=== PATIENT | male | born 1965 | race Caucasian/White ===

== ENCOUNTER 2017-03-14 09:48 | Emergency (ER) | payer OTHER ==
[2017-03-14] MEDS ORDERED: NORMAL SALINE 1000 ML 1,000 ML IV PRN (10:41)
[2017-03-14] MEDS ORDERED: KETOROLAC TROMETHAMINE INJ/PF 30 MG/1 ML SDV IV ONE (10:41)
--- NOTE | 2017-03-14 10:43 | ER Document Report ---
ED Medical Screen (RME) - General Chief Complaint: Shortness Of Breath Stated Complaint: SHORTNESS OF BREATH,FATIGUE Time Seen by Provider: 03/14/17 10:40 Mode of Arrival: Ambulatory Information source: Patient TRAVEL OUTSIDE OF THE [place] IN LAST 30 DAYS: No - HPI Patient complains to provider of: Dyspnea on exertion, low back pain, diaphoresis Notes: 03/14/17 10:42 Patient is a 51-year-old male with a history of high triglycerides and hypertension, who presents to the emergency room complaining of dyspnea on exertion, fatigue, diaphoresis, low back pain, headaches, ringing in his ears, symptoms have been going on for the past 2-3 days, he was actually seen by his primary care provider on Tuesday with these complaints, had an outpatient EKG and blood work performed, he was told the EKG was okay but he is awaiting results of his lab work, patient is a smoker, has no known cardiac disease, does have a history of chronic low back pain that has been worsening - Related Data Allergies/Adverse Reactions: No Known Allergies Allergy (Verified 03/14/17 09:52) Past Medical History Renal/ Medical History: Denies: Hx Peritoneal Dialysis Physical Exam - Vital signs Vitals: Temp Pulse Resp BP Pulse Ox 98.2 F 92 16 127/79 H 96 03/14/17 09:53 03/14/17 09:53 03/14/17 09:53 03/14/17 09:53 03/14/17 09:53 Course - Vital Signs Vital signs: Temp Pulse Resp BP Pulse Ox 98.2 F 92 16 127/79 H 96 03/14/17 09:53 03/14/17 09:53 03/14/17 09:53 03/14/17 09:53 03/14/17 09:53
[2017-03-14 11:06] LABS: APPEARANCE,URINE CLEAR; BILIRUBIN,URINE NEGATIVE (NEGATIVE); GLUCOSE, URINE NEGATIVE (NEGATIVE); KETONES,URINE NEGATIVE (NEGATIVE); LEUKOCYTE ESTERASE,URINE NEGATIVE (NEGATIVE); NITRITE,URINE NEGATIVE (NEGATIVE); PROTEIN,URINE NEGATIVE (NEGATIVE); URINE SPECIFIC GRAVITY 1.001; UROBILINOGEN,URINE NEGATIVE mg/dL (<2.0)
--- NOTE | 2017-03-14 11:12 | RADIOLOGY REPORT (SQ) ---
EXAM DESCRIPTION: CHEST PA/LAT COMPLETED DATE/TIME: 03/14/2017 11:04 am REASON FOR STUDY: NYE COMPARISON: None. EXAM PARAMETERS: NUMBER OF VIEWS: two views TECHNIQUE: Digital Frontal and Lateral radiographic views of the chest acquired. RADIATION DOSE: NA LIMITATIONS: none FINDINGS: LUNGS AND PLEURA: No opacities, masses or pneumothorax. No pleural effusion. MEDIASTINUM AND HILAR STRUCTURES: No masses or contour abnormalities. HEART AND VASCULAR STRUCTURES: Heart normal size. No evidence for failure. BONES: No acute findings. HARDWARE: None in the chest. OTHER: No other significant finding. IMPRESSION: NO SIGNIFICANT RADIOGRAPHIC FINDING IN THE CHEST. TECHNICAL DOCUMENTATION: JOB ID: [id number] [employer]- All Rights Reserved
[2017-03-14 11:16] LABS: ABSOLUTE BASOPHILS # (AUTO) 0.1 10^3/uL (0.0-0.2); ABSOLUTE EOSINOPHILS # (AUTO) 0.2 10^3/uL (0.0-0.6); ABSOLUTE LYMPHOCYTES (AUTO) 2.1 10^3/uL (0.5-4.7); ABSOLUTE MONOCYTES (AUTO) 0.6 10^3/uL (0.1-1.4); ABSOLUTE NEUT (AUTO) 3.8 10^3/uL (1.7-8.2); BASOPHILS % (AUTO) 0.8 % (0-2); EOSINOPHILS % (AUTO) 2.3 % (0-6); HEMATOCRIT 44.6 % (37.9-51.0); HEMOGLOBIN 14.7 g/dL (13.5-17.0); HGB HCT DIFFERENCE -0.5; LYMPHOCYTES % (AUTO) 30.9 % (13-45); MEAN CORPUSCULAR HEMOGLOBIN 32.6 pg (27.0-33.4); MEAN CORPUSCULAR HGB CONC 32.9 g/dL (32.0-36.0); MEAN CORPUSCULAR VOLUME 99 fl (80-97); MONOCYTES % (AUTO) 9.7 % (3-13); RED CELL DISTRIBUTION WIDTH 13.2 % (11.5-14.0); SEGMENTED NEUTROPHILS % (AUTO) 56.3 % (42-78); WHITE BLOOD COUNT 6.7 10^3/uL (4.0-10.5)
[2017-03-14 11:23] LABS: ALANINE AMINOTRANSFERASE 69 U/L (21-72); ALBUMIN 4.2 g/dL (3.5-5.0); ALKALINE PHOSPHATASE 74 U/L (38-126); ANION GAP 10 (5-19); ASPARTATE AMINO TRANSFERASE 40 U/L (17-59); BILIRUBIN,DIRECT 0.3 mg/dL (0.0-0.4); BILIRUBIN,TOTAL 0.5 mg/dL (0.2-1.3); BLOOD UREA NITROGEN 10 mg/dL (7-20); CALCIUM 9.8 mg/dL (8.4-10.2); CARBON DIOXIDE 26 mmol/L (22-30); CHLORIDE 109 mmol/L (98-107); CREATINE KINASE 116 U/L (55-170); CREATININE RESULT 0.89 mg/dL (0.52-1.25); GLUCOSE 81 mg/dL (75-110); POTASSIUM 4.5 mmol/L (3.6-5.0); SODIUM 145.3 mmol/L (137-145); TOTAL PROTEIN 7.3 g/dL (6.3-8.2)
[2017-03-14 11:40] LABS: CREATINE KINASE MB 1.39 ng/mL (<4.55)
[2017-03-14 11:42] LABS: TROPONIN I < 0.012 ng/mL
--- NOTE | 2017-03-14 12:21 | ER Document Report ---
ED General - General Mode of Arrival: Ambulatory Information source: Patient TRAVEL OUTSIDE OF THE [place] IN LAST 30 DAYS: No - HPI Patient complains to provider of: Lower back pain and shortness of breath Onset: Other - see notes above Associated symptoms: Other - see notes above <DOMINGA PELAOY - Last Filed: 03/14/17 12:02> <MABEL CHAPARRO - Last Filed: 03/14/17 16:09> - General Chief Complaint: Shortness Of Breath Stated Complaint: SHORTNESS OF BREATH,FATIGUE Time Seen by Provider: 03/14/17 10:40 Notes: 51 year old male with history with history of hyperlipidemia, hypertension, and GERD presents to the ED complaining of fatigue, worsening shortness of breath, lower back pain, and ringing to the ears that started this morning while at work. Patient reports that he has chronic lower back and right leg pain, but the pain was unbearable this morning. Patient also states that he has been short of breath for weeks to the point that climbing a flight of stairs feels like 'I've run 20 miles.' 2 days ago the patient woke up to severe lower back pain ('the worse in my life'), hot flash, cold sweats, and left leg cramping at 0400 and called EMS. EMS arrived, but the patient refused transport because his symptoms were resolving and he had an appointment with his PCP that same morning. Patient has chronic lower back and right leg spasms and was concerned when his left leg began to hurt. Patient has not received an MRI, stating that, Dr. Nielsen of [facility], wants him to finish 6 weeks of physical therapy before scheduling one. Patient is currently on Tricor, Lisinopril, Nexium, and as needed Zanaflex. (DOMINGA PELAYO) - Related Data Allergies/Adverse Reactions: No Known Allergies Allergy (Verified 03/14/17 09:52) Past Medical History - General Information source: Patient - Social History Smoking Status: Current Every Day Smoker Family History: CAD - Maternal Patient has suicidal ideation: No Patient has homicidal ideation: No - Past Medical History Cardiac Medical History: Reports: Hx Hypercholesterolemia, Hx Hypertension Renal/ Medical History: Denies: Hx Peritoneal Dialysis GI Medical History: Reports: Hx Gastroesophageal Reflux Disease Past Surgical History: Reports: Hx Orthopedic Surgery - left shoulder AC joint resection <DOMINGA PELAYO - Last Filed: 03/14/17 12:02> Review of Systems - Review of Systems Constitutional: See HPI, Chills, Diaphoresis, Malaise EENT: No symptoms reported Cardiovascular: No symptoms reported Respiratory: See HPI, Short of breath Gastrointestinal: No symptoms reported Genitourinary: No symptoms reported Male Genitourinary: No symptoms reported Musculoskeletal: See HPI, Back pain - lower back, Other - left thigh muscle spasms Skin: No symptoms reported Hematologic/Lymphatic: No symptoms reported Neurological/Psychological: No symptoms reported -: Yes All other systems reviewed and negative <ADRIEN PELAYOUR - Last Filed: 03/14/17 12:02> Physical Exam - General General appearance: Alert In distress: None - HEENT Head: Normocephalic, Atraumatic Eyes: Normal Extraocular movements intact: Yes Pupils: PERRL Neck: Normal. No: Carotid bruit - Respiratory Respiratory status: No respiratory distress Breath sounds: Normal - Cardiovascular Rhythm: Regular Heart sounds: Normal auscultation - Abdominal Inspection: Normal Distension: No distension Tenderness: Nontender - Back Back: Tender - Mild tenderness to palpation of the paralumbar musculature. Patient is able to sit up without difficulty. - Extremities General upper extremity: Normal inspection, Normal ROM General lower extremity: Normal inspection, Normal ROM - Neurological Neuro grossly intact: Yes - Psychological Associated symptoms: Normal affect, Normal mood - Skin Skin Temperature: Warm Skin Moisture: Dry Skin Color: Normal <DOMINGA PELAYO - Last Filed: 03/14/17 12:02> Course - Laboratory Result Diagrams: 03/14/17 10:50 03/14/17 10:50 <PELAYODOMINGA - Last Filed: 03/14/17 12:02> - Laboratory Result Diagrams: 03/14/17 10:50 03/14/17 10:50 - Diagnostic Test Radiology reviewed: Image reviewed, Reports reviewed - Chest x-ray does not show any acute process - EKG Interpretation by Me EKG shows normal: Sinus rhythm, [place], Intervals, QRS Complexes, ST-T Waves Rate: Normal - 83 Rhythm: NSR <MABEL CHAPARRO - Last Filed: 03/14/17 16:09> - Re-evaluation Re-evalutation: 03/14/17 16:04 I went to inform the patient that MRI would be ready for him in about 1 hour, and found the room if the being cleaned. When I returned to the desk, MRI was on the phone saying they could take him now, but he has eloped. Previously the nurse had reported that he was going to leave that he was not get an MRI that he demanded. I was waiting until I had his repeat cardiac enzymes to be sure all his systemic complaints did not have a cardiac origin prior to sending him for an elective study. About the time the repeat troponins came back the MRI had been ordered. Later the nurse told me that he informed her he was going to leave because he was tired of waiting for his MRI. Again, I went to the room to speak with patient and he had eloped. Patient's EKG was completely normal, chest x-ray was unremarkable. Lab work with 2 sets of cardiac enzymes was unremarkable. There is no clear explanation for the symptoms he experienced at work today of shortness of breath, fatigue, sweats, headache and ringing in the ears. (MABEL CHAPARRO) - Vital Signs Vital signs: Temp Pulse Resp BP Pulse Ox 98 F 73 14 135/84 H 100 03/14/17 14:00 03/14/17 15:00 03/14/17 15:01 03/14/17 15:01 03/14/17 15:01 - Laboratory Laboratory results interpreted by me: 03/14/17 03/14/17 10:50 10:50 MCV 99 H Sodium 145.3 H Chloride 109 H Discharge <DOMINGA PELAYO - Last Filed: 03/14/17 12:02> <MABEL CHAPARRO - Last Filed: 03/14/17 16:09> - Discharge Clinical Impression: Short of breath, fatigue, sweats, headache Chronic low back pain with bilateral sciatica Qualifiers: Back pain laterality: bilateral Qualified Code(s): M54.42 - Lumbago with sciatica, left side; M54.41 - Lumbago with sciatica, right side; G89.29 - Other chronic pain Condition: Stable Disposition: ELOPED Scribe Attestation: 03/14/17 16:09 I personally performed the services described in the documentation, reviewed and edited the documentation which was dictated to the scribe in my presence, and it accurately records my words and actions. (MABEL CHAPARRO) Scribe Documentation - Scribe Written by Geovanny:: Geovanny Matthew, 03/14/2017 1226 acting as scribe for :: Toshia <DOMINGA PELAYO - Last Filed: 03/14/17 12:02>
[2017-03-14 13:54] LABS: TROPONIN I < 0.012 ng/mL
[2017-03-14 15:57] VITALS: BP 114/73
--- NOTE | 2017-03-14 17:55 | EKG REPORT ---
SEVERITY:- NORMAL ECG - SINUS RHYTHM : Confirmed by: Belgica Amaya MD 14-Mar-2017 17:55:16
== END 2017-03-14 16:11 | disposition left against medical advice (07) ==
LOC: EDBD 09:48 → ER 09:48
DX: M54.42 Lumbago with sciatica, left side (principal); M54.41 Lumbago with sciatica, right side; G89.29 Other chronic pain; R06.02 Shortness of breath; R53.83 Other fatigue; E78.5 Hyperlipidemia, unspecified; I10 Essential (primary) hypertension; M54.5 Low back pain; Z79.899 Other long term (current) drug therapy; F17.200 Nicotine dependence, unspecified, uncomplicated
CPT/HCPCS: 93005; 99281; 96361; 96374; 36415; 82553; 82550; 85025; 80053; 81001; 84484; 83880; 71020; 93010; J1885; J7030

== ENCOUNTER 2017-09-28 08:27 | Day surgery (SDC) | payer OTHER ==
[~2017-09-28 08:27] MED LIST: PROPOFOL INJ 200 MG/20 ML VIAL IV ONE
[2017-09-28 10:41] VITALS: BP 130/79
--- NOTE | 2017-09-28 11:38 | Operative Report ---
Operative Report DATE OF SURGERY: 09/28/17 Operative Report: The risks benefits and alternatives of the procedure explained to the patient in detail and informed consent is obtained.A GIF Olympus video scope was inserted into the patient's mouth and hypopharynx, the esophagus is identified intubated and insufflated, the scope was then advanced through the esophagus stomach and duodenum, retroflexion maneuver is done, the esophagus stomach and first and second portions of the duodenum examined PREOPERATIVE DIAGNOSIS: Epigastric pain POSTOPERATIVE DIAGNOSIS: Hiatal hernia. Gastritis. Esophagitis with some residual inflammation and erosions OPERATION: EGD with biopsy SURGEON: DAGO AVILA ANESTHESIA: LMAC TISSUE REMOVED OR ALTERED: As noted above. COMPLICATIONS: None. ESTIMATED BLOOD LOSS: None. INTRAOPERATIVE FINDINGS: As noted above. PROCEDURE: Patient tolerated procedure well. No immediate postprocedure complications are noted. Patient discharged in good condition. Discharge date 09/28/2017. Discharge diet: Regular. Discharge activity: Regular. 2-3 week follow-up to discuss findings. Patient is instructed to call the office or proceed to the emergency room should there be any further problems or questions. We will wait on pathology.
== END 2017-09-28 10:45 | disposition home or self-care (01) ==
LOC: END 08:27
PROVIDERS: ATTEND Internal Medicine Gastroenterology
PROC: 0DB58ZX Excision of Esophagus, Via Natural or Artificial Opening Endoscopic, Diagnostic (ICD-10-PCS; 2017-09-28)
PROC: 0DB68ZX Excision of Stomach, Via Natural or Artificial Opening Endoscopic, Diagnostic (ICD-10-PCS; principal; 2017-09-28 10:30)
DX: K44.9 Diaphragmatic hernia without obstruction or gangrene (principal); K29.50 Unspecified chronic gastritis without bleeding; K20.9 Esophagitis, unspecified
CPT/HCPCS: 43239; 88305 ×2; J2704; 731

== ENCOUNTER 2018-05-03 07:12 | Day surgery (SDC) | payer OTHER ==
[2018-05-03] MEDS ORDERED: PROMETHAZINE HCL INJ 25 MG/1 ML VIAL IV PRN ×2 (10:13)
[2018-05-03] MEDS ORDERED: MEPERIDINE HCL/PF INJ 25 MG/1 ML DISP.SYRIN IV PRN (10:13)
[2018-05-03] MEDS ORDERED: FENTANYL CITRATE INJ/PF 100 MCG/2 ML AMPUL IV PRN ×3 (10:13)
[2018-05-03] MEDS ORDERED: DIPHENHYDRAMINE HCL 50 MG/ML VIAL IV PRN (10:13)
[2018-05-03] MEDS ORDERED: PROPOFOL INJ 200 MG/20 ML VIAL IV ONE (10:27)
--- NOTE | 2018-05-03 12:34 | Operative Report ---
Operative Report DATE OF SURGERY: 05/03/18 Operative Report: The risks, benefits and alternatives of the procedure are explained to the patient in detail and informed consent is obtained. Patient is taken back to the operating room and placed in a left, lateral decubital position. Timeout was called. Propofol medications administered. A rectal examination is done which did not reveal any masses, tears or fissures. An Olympus videoscope was inserted into the patient's rectum. Scope was then carefully advanced all the way to the cecum. Cecum was identified by the usual anatomical landmarks including the ileocecal valve as well as appendiceal office. Patient has a very long redundant colon. Prep was good. Scope was then sequentially pulled back via the various segments of the colon including the ascending colon, hepatic flexure, transverse colon, splenic flexure, descending colon and finally into the rectosigmoid portions of the colon. Retroflexion maneuvers performed. PREOPERATIVE DIAGNOSIS: Abdominal distention POSTOPERATIVE DIAGNOSIS: Redundancy of the colon. Poor overall motility. 2 polyps one in the sigmoid is removed via snare polypectomy. The other in the rectum which is essentially ablated in situ since no tissue was recovered. Mild diverticulosis. Internal hemorrhoids OPERATION: Colonoscopy with biopsy SURGEON: DAGO AVILA ANESTHESIA: LMAC TISSUE REMOVED OR ALTERED: As noted above. COMPLICATIONS: None. ESTIMATED BLOOD LOSS: None. INTRAOPERATIVE FINDINGS: As noted above. PROCEDURE: Patient tolerated the procedure well. No immediate postprocedure complications are noted. Patient discharged in good condition. Discharge date 05/03/2018. Discharge diet: Regular. Discharge activity: Regular. 2-3 week follow-up to discuss findings. 3-5 year surveillance colonoscopy. We will wait on pathology. Patient is instructed call the office or proceed to the emergency room should there be any further problems or questions.
[2018-05-03 13:07] VITALS: BP 114/70
== END 2018-05-03 12:10 | disposition home or self-care (01) ==
LOC: OROUT 07:12
PROVIDERS: ATTEND Internal Medicine Gastroenterology
DX: K57.30 Diverticulosis of large intestine without perforation or abscess without bleeding (principal); K64.8 Other hemorrhoids; K63.5 Polyp of colon; D12.8 Benign neoplasm of rectum; E78.5 Hyperlipidemia, unspecified; K21.9 Gastro-esophageal reflux disease without esophagitis; E78.1 Pure hyperglyceridemia; F17.210 Nicotine dependence, cigarettes, uncomplicated; I10 Essential (primary) hypertension; I49.9 Cardiac arrhythmia, unspecified; M19.90 Unspecified osteoarthritis, unspecified site; Z79.899 Other long term (current) drug therapy
CPT/HCPCS: 45385; 36415; 84132; 88305 ×2; J2704; 811

== ENCOUNTER 2018-09-04 01:13 | Observation (INO) | payer OTHER ==
[2018-09-04] MEDS ORDERED: ASPIRIN 81 MG TABLET, CHEWABLE PO ONE (01:31)
--- NOTE | 2018-09-04 01:31 | ER Document Report ---
ED General - General Chief Complaint: Chest Pain Stated Complaint: CHEST PAIN Time Seen by Provider: 09/04/18 01:25 Notes: 52-year-old male with hypertension, hyperlipidemia, RA, gastritis, hiatal hernia who was a recent 2 pack/day smoker who quit 5 weeks ago presents with chest pain substernal and left arm and neck numbness that woke him from sleep at about midnight. Patient is also complaining of reflux but states that the chest pain and numbness is completely unlike his typical reflux symptoms. Described the pain as a pressure. He said the pain did not radiate but again it was a numbness. This is the first time this is happened. He denied diaphoresis but said his feet got sweaty, denied nausea, denied dyspnea, denied vomiting. TRAVEL OUTSIDE OF THE [place] IN LAST 30 DAYS: No - Related Data Allergies/Adverse Reactions: No Known Allergies Allergy (Verified 05/03/18 07:34) Past Medical History - General Information source: Patient, Parent - Social History Smoking Status: Former Smoker - 51-10-tdsq-year history Frequency of alcohol use: Social Drug Abuse: None Family History: CAD - Maternal - Past Medical History Cardiac Medical History: Reports: Hx Hypercholesterolemia, Hx Hypertension Denies: Hx Coronary Artery Disease, Hx Heart Attack Pulmonary Medical History: Reports: Hx Pneumonia - YRS AGO Denies: Hx Asthma, Hx Bronchitis, Hx COPD Neurological Medical History: Denies: Hx Cerebrovascular Accident, Hx Seizures Renal/ Medical History: Denies: Hx Peritoneal Dialysis GI Medical History: Reports: Hx Gastroesophageal Reflux Disease Musculoskeletal Medical History: Reports Hx Arthritis - RA, LOW BACK, DJD Past Surgical History: Reports: Hx Orthopedic Surgery - left shoulder AC joint resection - Immunizations Hx Diphtheria, Pertussis, Tetanus Vaccination: Yes Hx Pneumococcal Vaccination: 06/26/17 Review of Systems - Review of Systems Constitutional: See HPI EENT: No symptoms reported Cardiovascular: See HPI Respiratory: See HPI Gastrointestinal: See HPI Genitourinary: No symptoms reported Male Genitourinary: No symptoms reported Musculoskeletal: No symptoms reported Skin: No symptoms reported Hematologic/Lymphatic: No symptoms reported Neurological/Psychological: No symptoms reported Physical Exam - Vital signs Vitals: Temp Pulse Resp BP Pulse Ox 98.2 F 101 H 14 130/86 H 96 09/04/18 01:16 09/04/18 01:16 09/04/18 01:16 09/04/18 01:16 09/04/18 01:16 - Notes Notes: Reviewed vital signs and nursing note as charted by RN. CONSTITUTIONAL: Well-appearing, well-nourished, acting appropriately for age, in no acute distress HEAD: Normocephalic, atraumatic, no swelling EYES: PERRL, Conjunctivae clear, no drainage, EOMI, no scleral icterus ENT: External ears without lesions, External auditory canal is patent, airway patent, mucous membranes pink and moist NECK: Supple, no masses CARD: Regular rate and rhythm, no murmurs, no rubs, no gallops, capillary refill < 2 seconds, symmetric pulses RESP: The lungs are clear to auscultation bilaterally, no wheezing, no rales, no rhonchi. Respiratory rate and effort are normal, normal chest excursion. No respiratory distress, no retractions, no stridor, no nasal flaring, no accessory muscle use. ABD/GI: Distended tense abdomen, normal bowel sounds, tense, non-tender, no rebound, no guarding, no palpable organomegaly EXT: Normal ROM in all joints, non-tender to palpation, no effusions, no edema SKIN: Normal color for age and race, warm, dry, good turgor, no acute lesions noted NEURO: No facial asymmetry, moves all extremities equally, motor and sensory function intact Course - Re-evaluation Re-evalutation: 09/04/18 01:30 52-year-old male with history of hypertension hyperlipidemia and recent 2 pack/ day smoker presents to the emergency department with chest pain and left arm and neck numbness that woke him from his sleep at midnight. Patient appears comfortable in the bed and did not endorse any chest pain at this time he said that the pain initially came on he sat up and got something to drink and then it subsided but it comes and goes periodically. Chest pain workup initiated. Is complaining of severe gastric reflux. GI cocktail ordered. HEART Score: 4 09/04/18 03:[address] Isaac about the patient and he requested 1 more troponin. 09/04/18 05:28 Second troponin was negative. I called Dr. Isaac and he suspects eosinophilic esophagitis and requested that I order Solu-Medrol 125 mg IV 1 time. He accepted the patient for telemetry observation. - Vital Signs Vital signs: Temp Pulse Resp BP Pulse Ox 98.2 F 101 H 23 H 124/81 94 09/04/18 01:16 09/04/18 01:16 09/04/18 04:03 09/04/18 04:00 09/04/18 04:00 - Laboratory Result Diagrams: 09/04/18 01:23 09/04/18 01:23 Laboratory results interpreted by me: 09/04/18 09/04/18 01:23 01:23 RBC 3.84 L Hgb 13.2 L Hct 37.1 L MCH 34.3 H Eosinophils % 11.0 H Absolute Eosinophils 0.7 H Sodium 146.7 H ALT 104 H Discharge - Discharge Clinical Impression: Chest pain Qualifiers: Chest pain type: unspecified Qualified Code(s): R07.9 - Chest pain, unspecified Condition: Stable Disposition: ADMITTED OBSERVATION Admitting Provider: Hospitalist Unit Admitted: Telemetry Additional Instructions: Your child has been diagnosed as having croup. This is a viral infection that causes inflammation of the upper airway. This causes a barking cough and the difficulty breathing. Your child has been treated with a single dose of steroids here in the emergency department that will help to reduce the inflammation and the airway and improve their symptoms. Please return to the emergency department immediately if your child begins to have worsening difficulty breathing, persistent vomiting, becomes lethargic, or has any other symptoms that are worrisome to you. Please follow-up with your primary sr. merchandise planner in the next 1-2 days. Referrals: JENNIFER GORDILLO MD [Primary Care Provider] - Follow up as needed
[2018-09-04 01:44] LABS: ABSOLUTE BASOPHILS # (AUTO) 0.1 10^3/uL (0.0-0.2); ABSOLUTE EOSINOPHILS # (AUTO) 0.7 10^3/uL (0.0-0.6); ABSOLUTE LYMPHOCYTES (AUTO) 1.9 10^3/uL (0.5-4.7); ABSOLUTE MONOCYTES (AUTO) 0.7 10^3/uL (0.1-1.4); ABSOLUTE NEUT (AUTO) 3.3 10^3/uL (1.7-8.2); BASOPHILS % (AUTO) 1.6 % (0-2); HEMATOCRIT 37.1 % (37.9-51.0); HEMOGLOBIN 13.2 g/dL (13.5-17.0); LYMPHOCYTES % (AUTO) 28.7 % (13-45); MEAN CORPUSCULAR HEMOGLOBIN 34.3 pg (27.0-33.4); MEAN CORPUSCULAR HGB CONC 35.5 g/dL (32.0-36.0); MEAN CORPUSCULAR VOLUME 97 fl (80-97); MONOCYTES % (AUTO) 10.2 % (3-13); PLATELET COUNT 255 10^3/uL (150-450); RED BLOOD COUNT 3.84 10^6/uL (4.35-5.55); RED CELL DISTRIBUTION WIDTH 13.3 % (11.5-14.0); SEGMENTED NEUTROPHILS % (AUTO) 48.5 % (42-78); TOTAL CELLS COUNTED % (AUTO) 100 %; WHITE BLOOD COUNT 6.7 10^3/uL (4.0-10.5)
[2018-09-04 01:55] LABS: ALANINE AMINOTRANSFERASE 104 U/L (21-72); ALBUMIN 4.1 g/dL (3.5-5.0); ALKALINE PHOSPHATASE 58 U/L (38-126); ANION GAP 14 (5-19); ASPARTATE AMINO TRANSFERASE 51 U/L (17-59); BILIRUBIN,DIRECT 0.3 mg/dL (0.0-0.4); BILIRUBIN,TOTAL 0.3 mg/dL (0.2-1.3); BLOOD UREA NITROGEN 11 mg/dL (7-20); CALCIUM 9.4 mg/dL (8.4-10.2); CARBON DIOXIDE 29 mmol/L (22-30); CHLORIDE 104 mmol/L (98-107); CREATINE KINASE 126 U/L (55-170); GLUCOSE 105 mg/dL (75-110); SODIUM 146.7 mmol/L (137-145); TOTAL PROTEIN 6.7 g/dL (6.3-8.2)
--- NOTE | 2018-09-04 02:01 | RADIOLOGY REPORT (SQ) ---
XR CHEST 1 VIEW HISTORY: Chest pain. COMPARISON: 03/14/2017 FINDINGS: The cardiomediastinal silhouette is unremarkable. The lungs are clear. No pleural effusion or pneumothorax is identified. IMPRESSION: No acute cardiopulmonary abnormality.
[2018-09-04 02:07] LABS: CREATINE KINASE MB 1.31 ng/mL (<4.55)
[2018-09-04 02:09] LABS: TROPONIN I < 0.012 ng/mL
[2018-09-04] MEDS ORDERED: MAG HYDROX/AL HYDROX/SIMETH SUSP 30 ML UDCUP PO ONE (02:12)
[2018-09-04] MEDS ORDERED: METOCLOPRAMIDE HCL ORAL SOLN 10 MG/10 ML UDCUP PO ONE (02:12)
[2018-09-04] MEDS ORDERED: LIDOCAINE 2% VISCOUS SOLN 20 ML UDCUP PO ONE (02:12)
[2018-09-04] MEDS ORDERED: METHYLPREDNISOLONE INJ 125 MG/2 ML SDV IV ONE (05:27)
[2018-09-04] MEDS ORDERED: NITROGLYCERIN 0.4 MG/TAB 25 TAB/BOTTLE SL PRN (05:52)
[2018-09-04] MEDS ORDERED: DEXTROSE 40% GEL 15 GM TUBE PO PRN ×2 (05:52)
[2018-09-04] MEDS ORDERED: DEXTROSE 50%-WATER 25 GM/50 ML DISP.SYRIN IV PRN ×2 (05:52)
[2018-09-04] MEDS ORDERED: GLUCAGON,HUMAN RECOMB 1 MG INJ SUBCUT PRN (05:52)
[2018-09-04] MEDS ORDERED: HYDRALAZINE HCL INJ/PF 20 MG/1 ML SDV IV PRN (05:55)
[2018-09-04] MEDS ORDERED: HEPARIN SOD (PORCINE) 5,000 UNIT/ML 1 ML SYRINGE SUBCUT SCH (06:00)
[2018-09-04] MEDS ORDERED: ATORVASTATIN CALCIUM 80 MG TABLET PO ONE (06:15)
[2018-09-04] MEDS ORDERED: FAMOTIDINE INJ/PF 20 MG/2 ML SDV IV ONE (06:15)
[2018-09-04] MEDS ORDERED: PREDNISONE 20 MG TABLET PO ONE (06:15)
[2018-09-04 06:16] LABS: CHOLESTEROL 208.16 mg/dL (0-200); TRIGLYCERIDES 326 mg/dL (<150)
[2018-09-04 06:27] LABS: DIRECT LDL 134 mg/dL (<100)
[2018-09-04 06:33] LABS: VLDL CHOLESTEROL 65.2 mg/dL (10-31)
--- NOTE | 2018-09-04 06:35 | PDOC H&P ---
History of Present Illness Admission Date/PCP: 09/04/18 05:40 JENNIFER GORDILLO MD Patient complains of: Chest pain History of Present Illness: KINJAL CONTE II is a 52 year old male with a past medical history of emphysema, dyslipidemia, hypertension, hiatal hernia with GERD, tobacco until 5 weeks ago and arthritis just started on meloxicam. Patient presents with retrosternal chest pain that woke him from sleep. Pain was 3 out of 5 intensity, pressure in nature, radiating to the jaw and left arm. Associated with nausea without vomiting denying palpitations or shortness of breath. Seeking evaluation in the emergency room he received a GI cocktail which alleviated symptoms briefly. He is unable to identify exacerbating factors. His workup reveals eosinophilia and an abnormal EKG. He is currently pain-free and referred to the hospitalist for observation. New medications include meloxicam. He denies previous cardiac stress test. Past Medical History Cardiac Medical History: Reports: Hyperlipidema, Hypertension Denies: Coronary Artery Disease, Myocardial Infarction Pulmonary Medical History: Reports: Chronic Obstructive Pulmonary Disease (COPD) , Pneumonia - YRS AGO Denies: Asthma, Bronchitis Neurological Medical History: Denies: Seizures GI Medical History: Reports: Gastroesophageal Reflux Disease, Hiatal Hernia Musculoskeltal Medical History: Reports: Arthritis - RA, LOW BACK, DJD Psychiatric Medical History: Denies: Tobacco Dependency Hematology: Denies: Anemia Past Surgical History Past Surgical History: Reports: Orthopedic Surgery - left shoulder AC joint resection Social History Information Source: Patient, [facility] Records Lives with: Spouse/Significant other Smoking Status: Former Smoker - 36-74-javp-year history Frequency of Alcohol Use: Social Drugs: None - Advance Directive Resuscitation Status: Full Code Family History Family History: CAD - Maternal, Hypertension Parental Family History Reviewed: Yes Children Family History Reviewed: Yes Sibling(s) Family History Reviewed.: Yes Medication/Allergy Home Medications: Cholecalciferol (Vitamin D3) [Vitamin D] 50,000 unit PO .QWEEKLY 09/27/17 Fenofibrate 40 mg PO DAILY 09/27/17 Garlic [Odorless Garlic] 1 each PO DAILY 09/27/17 Multivitamin [Multiple Vitamins] 1 each PO DAILY 09/27/17 Clindamycin HCl [Cleocin 300 mg Capsule] 300 mg PO TID 05/02/18 Dexlansoprazole [Dexilant 60 mg Capsule] 60 mg PO DAILY 05/02/18 Lisinopril/Hydrochlorothiazide [Lisinopril-Hctz 10-12.5 mg Tab] 1 each PO DAILY 05/02/18 Naproxen Sodium [Aleve] 220 mg PO DAILY 05/02/18 Allergies/Adverse Reactions: No Known Allergies Allergy (Verified 05/03/18 07:34) Review of Systems Constitutional: ABSENT: chills, fever(s), headache(s), weight gain, weight loss Eyes: ABSENT: visual disturbances Ears: ABSENT: hearing changes Cardiovascular: ABSENT: chest pain, dyspnea on exertion, edema, orthropnea, palpitations Respiratory: ABSENT: cough, hemoptysis Gastrointestinal: ABSENT: abdominal pain, constipation, diarrhea, hematemesis, hematochezia, nausea, vomiting Genitourinary: ABSENT: dysuria, hematuria Musculoskeletal: ABSENT: joint swelling Integumentary: ABSENT: rash, wounds Neurological: ABSENT: abnormal gait, abnormal speech, confusion, dizziness, focal weakness, syncope Psychiatric: ABSENT: anxiety, depression, homidical ideation, suicidal ideation Endocrine: ABSENT: cold intolerance, heat intolerance, polydipsia, polyuria Hematologic/Lymphatic: ABSENT: easy bleeding, easy bruising Physical Exam Vital Signs: Temp Pulse Resp BP Pulse Ox 98.2 F 101 H 15 121/77 94 09/04/18 01:16 09/04/18 01:16 09/04/18 06:01 09/04/18 06:01 09/04/18 06:01 General appearance: PRESENT: no acute distress, well-developed, well-nourished Head exam: PRESENT: atraumatic, normocephalic Eye exam: PRESENT: conjunctiva pink, EOMI, PERRLA. ABSENT: scleral icterus Ear exam: PRESENT: normal external ear exam Mouth exam: PRESENT: moist, tongue midline Neck exam: ABSENT: carotid bruit, JVD, lymphadenopathy, thyromegaly Respiratory exam: PRESENT: clear to auscultation curtis. ABSENT: rales, rhonchi, wheezes Cardiovascular exam: PRESENT: RRR. ABSENT: diastolic murmur, rubs, systolic murmur Pulses: PRESENT: normal dorsalis pedis pul Vascular exam: PRESENT: normal capillary refill GI/Abdominal exam: PRESENT: normal bowel sounds, soft. ABSENT: distended, guarding, mass, organolmegaly, rebound, tenderness Rectal exam: PRESENT: deferred Extremities exam: PRESENT: full ROM. ABSENT: calf tenderness, clubbing, pedal edema Neurological exam: PRESENT: alert, awake, oriented to person, oriented to place , oriented to time, oriented to situation, CN II-XII grossly intact. ABSENT: motor sensory deficit Psychiatric exam: PRESENT: appropriate affect, normal mood. ABSENT: homicidal ideation, suicidal ideation Skin exam: PRESENT: dry, intact, warm. ABSENT: cyanosis, rash Results Impressions: Chest X-Ray 09/04/18 01:31 IMPRESSION: No acute cardiopulmonary abnormality. Assessment & Plan - Diagnosis (1) Atypical chest pain Is this a current diagnosis for this admission?: Yes Plan: Atypical chest pain though the patient's pain is atypical there are multiple risk factors for coronary artery disease and subsequently will observe and evaluation of acute coronary syndrome versus coronary artery disease with anginal equivalents. Cardiac monitoring blood pressure Q6 hours ,TSH, lipid profile, serial cardiac enzymes and cardiac stress test (2) Dyslipidemia Is this a current diagnosis for this admission?: Yes Plan: Empiric statin, follow-up lipid profile (3) GERD (gastroesophageal reflux disease) Is this a current diagnosis for this admission?: Yes Plan: Likely source of chief complaint, given the eosinophilia will trial prednisone with Pepcid. Recommend lifestyle modification, outpatient EGD with Dr. Issa. - Time Time Spent: 50 to 70 Minutes - Inpatient Certification Medical Necessity: Need Close Monitoring Due to Risk of Patient Decompensation
--- NOTE | 2018-09-04 06:54 | EKG REPORT ---
SEVERITY:- ABNORMAL ECG - SINUS TACHYCARDIA PROBABLE INFERIOR INFARCT, AGE INDETERMINATE CONSIDER POSTERIOR WALL INVOLVEMENT : Confirmed by: Daniel Sahni 04-Sep-2018 06:53:31
[2018-09-04] MEDS ORDERED: DOCUSATE SODIUM 100 MG CAPSULE PO SCH (10:00)
[2018-09-04 10:16] VITALS: BP 126/87
--- NOTE | 2018-09-04 11:21 | PDOC DISCHARGE SUMMARY ---
General - Admit/Disc Date/PCP Admission Date/Primary Care Provider: 09/04/18 05:40 JENNIFER GORDILLO MD PT ELOPED WITHOUT SIGNING AMA Discharge Date: 09/04/18 - Additional Information Resuscitation Status: Full Code Home Medications: Dexlansoprazole [Dexilant 60 mg Capsule] 60 mg PO DAILY 09/04/18 Ergocalciferol (Vitamin D2) [Drisdol 50,000 unit (1.25MG) Capsule] 50,000 unit PO FR 09/04/18 Fenofibrate 160 mg PO DAILY 09/04/18 Fluticasone/Salmeterol [Advair HFA 115-21 mcg Inhaler] 2 puff IH BID 09/04/18 Lisinopril/Hydrochlorothiazide [Zestoretic 20-12.5 mg Tablet] 1 tab PO DAILY 07/13 Meloxicam [Mobic] 15 mg PO DAILY 09/04/18 Pravastatin Sodium [Pravachol] 80 mg PO QHS 09/04/18 History of Present Illness Patient complains of: chst pain History of Present Illness: KINJAL CONTE II is a 52 year old male 52 year old male with a past medical history of emphysema, dyslipidemia, hypertension, hiatal hernia with GERD, tobacco until 5 weeks ago and arthritis just started on meloxicam. Patient presents with retrosternal chest pain that woke him from sleep. Pain was 3 out of 5 intensity, pressure in nature, radiating to the jaw and left arm. Associated with nausea without vomiting denying palpitations or shortness of breath. Seeking evaluation in the emergency room he received a GI cocktail which alleviated symptoms briefly. He is unable to identify exacerbating factors. His workup reveals eosinophilia and an abnormal EKG. He is currently pain-free and referred to the hospitalist for observation. New medications include meloxicam. He denies previous cardiac stress test. Hospital Course Hospital Course: Diagnosis (1) Atypical chest pain Is this a current diagnosis for this admission?: Yes Plan: Atypical chest pain though the patient's pain is atypical there are multiple risk factors for coronary artery disease and subsequently will observe and evaluation of acute coronary syndrome versus coronary artery disease with anginal equivalents. Cardiac monitoring blood pressure Q6 hours ,TSH, lipid profile, serial cardiac enzymes and cardiac stress test (2) Dyslipidemia Is this a current diagnosis for this admission?: Yes Plan: Empiric statin, follow-up lipid profile (3) GERD (gastroesophageal reflux disease) Is this a current diagnosis for this admission?: Yes Plan: Likely source of chief complaint, given the eosinophilia will trial prednisone with Pepcid. Recommend lifestyle modification, outpatient EGD with Dr. Issa. Physical Exam Vital Signs: Temp Pulse Resp BP Pulse Ox 98.2 F 101 H 16 126/87 H 97 09/04/18 01:16 09/04/18 01:16 09/04/18 09:01 09/04/18 09:00 09/04/18 09:01 General appearance: PRESENT: no acute distress Head exam: PRESENT: atraumatic Eye exam: PRESENT: PERRLA Neck exam: ABSENT: carotid bruit, JVD, lymphadenopathy, thyromegaly Respiratory exam: PRESENT: clear to auscultation curtis. ABSENT: rales, rhonchi, wheezes Cardiovascular exam: PRESENT: RRR. ABSENT: diastolic murmur, rubs, systolic murmur Vascular exam: PRESENT: normal capillary refill Neurological exam: PRESENT: alert, awake, oriented to person, oriented to place , oriented to time, oriented to situation, CN II-XII grossly intact. ABSENT: motor sensory deficit Psychiatric exam: PRESENT: appropriate affect, normal mood. ABSENT: homicidal ideation, suicidal ideation Skin exam: PRESENT: dry, intact, warm. ABSENT: cyanosis, rash Results Laboratory Results: 09/04/18 09:05 Troponin I < 0.012 Impressions: Chest X-Ray 09/04/18 01:31 IMPRESSION: No acute cardiopulmonary abnormality. Qualifiers - * PATIENT BEING DISCHARGED WITH ANY OF THE FOLLOWING DIAGNOSIS: No VTE patient discharged on overlapping Therapy?: No
[2018-09-04] MEDS ORDERED: PREDNISONE 20 MG TABLET PO SCH (18:00)
[2018-09-04] MEDS ORDERED: ATORVASTATIN CALCIUM 80 MG TABLET PO SCH (22:00)
[2018-09-04] MEDS ORDERED: FAMOTIDINE INJ/PF 20 MG/2 ML SDV IV SCH (22:00)
== END 2018-09-04 10:55 | disposition home or self-care (01) ==
LOC: ER 01:13 → EH 05:40
PROVIDERS: ADMIT Internal Medicine; ATTEND Internal Medicine
DX: R07.89 Other chest pain (principal); Z53.21 Procedure and treatment not carried out due to patient leaving prior to being seen by health care provider; E78.5 Hyperlipidemia, unspecified; I10 Essential (primary) hypertension; R11.0 Nausea; D72.1 Eosinophilia; R94.31 Abnormal electrocardiogram [ECG] [EKG]; K21.9 Gastro-esophageal reflux disease without esophagitis; M06.9 Rheumatoid arthritis, unspecified; K44.9 Diaphragmatic hernia without obstruction or gangrene; R20.0 Anesthesia of skin; M19.90 Unspecified osteoarthritis, unspecified site; Z79.899 Other long term (current) drug therapy; Z79.1 Long term (current) use of non-steroidal anti-inflammatories (NSAID); Z82.49 Family history of ischemic heart disease and other diseases of the circulatory system; Z87.891 Personal history of nicotine dependence
CPT/HCPCS: 93005; 99285; 96374; 36415; 82553; 82550; 84443; 85025; 80053; 84484; 80061; 71045; 93010; J1644; J3490; J2930; J7512; S0028

== ENCOUNTER → 2018-10-06 | Outpatient (CLI) | payer OTHER ==
--- NOTE | 2018-10-06 13:50 | RADIOLOGY REPORT (SQ) ---
EXAM DESCRIPTION: U/S ABDOMEN LIMITED W/O DOP COMPLETED DATE/TIME: 10/06/2018 12:21 pm REASON FOR STUDY: RUQ PAIN (R10.11) R10.11 RIGHT UPPER QUADRANT PAIN COMPARISON: None. TECHNIQUE: Dynamic and static grayscale images acquired of the abdomen and recorded on PACS. Additio nal selected color Doppler and spectral images recorded. Note: Exam does not meet criteria for a complete doppler/duplex scan LIMITATIONS: Study limited due to acoustical interference from fat or from air in the bowel. FINDINGS: PANCREAS: Poorly seen secondary to acoustical interference from fat or from air in the bow el. No visualized masses. Duct normal caliber as seen. LIVER: Echotexture is coarse with increased echogenicity consistent with fatty infiltration. 2.4 cm cyst. LIVER VASCULATURE: Normal directional flow of the main portal vein and hepatic veins. GALLBLADDER: No stones. Normal wall thickness. No pericholecystic fluid. ULTRASOUND-DETECTED NICKERSON'S SIGN: Negative. INTRAHEPATIC DUCTS AND COMMON DUCT: CBD and intrahepatic ducts normal caliber. No filling defects. INFERIOR VENA CAVA: Normal flow. AORTA: Obscured. RIGHT KIDNEY: Normal size. Normal echogenicity. No solid or suspicious masses. No hydronephrosis. No calcifications. PERITONEAL AND PLEURAL SPACES: No ascites or effusions. OTHER: No other significant finding. IMPRESSION: FATTY INFILTRATION OF THE LIVER. 2.4 CM HEPATIC CYST. NO OTHER SIGNIFICANT FINDING IN THE VISUALIZED ABDOMEN. TECHNICAL DOCUMENTATION: JOB ID: [id number] [employer]- All Rights Reserved Reading location - IP/workstation name: [email or web address]
== END ==
LOC: RAD 11:14
PROVIDERS: ATTEND Family Medicine Geriatric Medicine
DX: K76.0 Fatty (change of) liver, not elsewhere classified (principal); R10.11 Right upper quadrant pain; K76.89 Other specified diseases of liver
CPT/HCPCS: 76705

== ENCOUNTER → 2018-10-18 | Outpatient (CLI) | payer OTHER ==
--- NOTE | 2018-10-18 10:26 | RADIOLOGY REPORT (SQ) ---
EXAM DESCRIPTION: BARIUM SWALLOW ESOPHAGUS COMPLETED DATE/TIME: 10/18/2018 9:14 am REASON FOR STUDY: GERD K44.9 DIAPHRAGMATIC HERNIA WITHOUT OBSTRUCTION OR GANGRENE K21.9 GASTRO-ESO PHAGEAL REFLUX DISEASE WITHOUT ESOPHAGITIS COMPARISON: None. TECHNIQUE: Under fluoroscopic guidance, patient ingested effervescent granules followed by thick and thin barium. Fluoroscopic spot images and routine radiographic images acquired and stored on PACS. 12 MM BARIUM TABLET GIVEN: Yes. No significant delay in passage. LIMITATIONS: None. FLUOROSCOPY TIME: FLUORO TIME: 1 minutes 14 seconds 18 series of digital images saved to PACS. FINDINGS: NEUROMUSCULAR COORDINATION OF SWALLOW: Normal. No aspiration. ESOPHAGEAL MOTILITY: Normal peristalsis. Feline (quaternary) contractions of the esophagus are prese nt. ESOPHAGEAL MUCOSA: Small linear mucosal ulcerations are present in the distal esophagus just above a moderate size hiatal hernia. Birch's esophagus could not be excluded GASTRO-ESOPHAGEAL JUNCTION: Moderate size retrocardiac hiatal hernia with gastroesophageal reflux. N o Schatzki's ring NON-GI TRACT STRUCTURES: No significant finding. OTHER: No other significant finding. IMPRESSION: Moderate size hiatal hernia with gastroesophageal reflux. Mucosal irregularity in the d istal esophagus, Birch's esophagus may be present COMMENT: Quality ID [id number]: Final reports for procedures using fluoroscopy that document radiation exp osure indices, or exposure time and number of fluorographic images (if radiation exposure indices are not available) TECHNICAL DOCUMENTATION: JOB ID: [id number] [employer]- All Rights Reserved Reading location - IP/workstation name: [email or web address]
== END ==
LOC: RAD 09:29
PROVIDERS: ATTEND Surgery
DX: K44.9 Diaphragmatic hernia without obstruction or gangrene (principal); K21.9 Gastro-esophageal reflux disease without esophagitis
CPT/HCPCS: 74220

== ENCOUNTER 2018-10-20 01:37 | Emergency (ER) | payer OTHER ==
[2018-10-20 02:00] VITALS: BP 142/86
--- NOTE | 2018-10-20 09:05 | EKG REPORT ---
SEVERITY:- NORMAL ECG - SINUS RHYTHM : Confirmed by: Belgica Amaya MD 20-Oct-2018 09:05:20
== END 2018-10-20 03:45 | disposition left against medical advice (07) ==
LOC: ER 01:37
DX: Z53.21 Procedure and treatment not carried out due to patient leaving prior to being seen by health care provider (principal)
CPT/HCPCS: 93005; 93010

== ENCOUNTER → 2018-10-24 | Day surgery (SDC) | payer OTHER ==
[~2018-10-24] MED LIST changes: +BENZOCAINE 20% AEROSOL SPRAY 60 GM ONE; +LIDOCAINE 2% JELLY 5 ML TUBE ONE; -PROPOFOL INJ 200 MG/20 ML VIAL IV ONE
== END ==
LOC: END 07:45
PROVIDERS: ATTEND Surgery
DX: K21.9 Gastro-esophageal reflux disease without esophagitis (principal); K44.9 Diaphragmatic hernia without obstruction or gangrene
CPT/HCPCS: 91010; J3490

== ENCOUNTER → 2018-11-07 | Outpatient (CLI) | payer OTHER ==
[2018-11-07 09:18] LABS: ABSOLUTE BASOPHILS # (AUTO) 0.1 10^3/uL (0.0-0.2); ABSOLUTE EOSINOPHILS # (AUTO) 0.3 10^3/uL (0.0-0.6); ABSOLUTE LYMPHOCYTES (AUTO) 1.9 10^3/uL (0.5-4.7); ABSOLUTE MONOCYTES (AUTO) 0.5 10^3/uL (0.1-1.4); ABSOLUTE NEUT (AUTO) 2.9 10^3/uL (1.7-8.2); BASOPHILS % (AUTO) 1.2 % (0-2); EOSINOPHILS % (AUTO) 4.6 % (0-6); HEMATOCRIT 40.8 % (37.9-51.0); HEMOGLOBIN 14.2 g/dL (13.5-17.0); LYMPHOCYTES % (AUTO) 34.3 % (13-45); MEAN CORPUSCULAR HEMOGLOBIN 33.8 pg (27.0-33.4); MEAN CORPUSCULAR HGB CONC 34.8 g/dL (32.0-36.0); MEAN CORPUSCULAR VOLUME 97 fl (80-97); MONOCYTES % (AUTO) 8.7 % (3-13); PLATELET COUNT 230 10^3/uL (150-450); RED CELL DISTRIBUTION WIDTH 12.7 % (11.5-14.0); SEGMENTED NEUTROPHILS % (AUTO) 51.2 % (42-78); TOTAL CELLS COUNTED % (AUTO) 100 %; WHITE BLOOD COUNT 5.6 10^3/uL (4.0-10.5)
[2018-11-07 09:32] LABS: ALANINE AMINOTRANSFERASE 109 U/L (21-72); ALBUMIN 4.6 g/dL (3.5-5.0); ALKALINE PHOSPHATASE 56 U/L (38-126); ANION GAP 6 (5-19); ASPARTATE AMINO TRANSFERASE 64 U/L (17-59); BILIRUBIN,DIRECT 0.2 mg/dL (0.0-0.4); BILIRUBIN,TOTAL 0.4 mg/dL (0.2-1.3); BLOOD UREA NITROGEN 14 mg/dL (7-20); CALCIUM 10.1 mg/dL (8.4-10.2); CARBON DIOXIDE 30 mmol/L (22-30); CHLORIDE 111 mmol/L (98-107); CHOLESTEROL 239.26 mg/dL (0-200); GLUCOSE 98 mg/dL (75-110); POTASSIUM 4.9 mmol/L (3.6-5.0); SODIUM 146.7 mmol/L (137-145); TRIGLYCERIDES 320 mg/dL (<150)
[2018-11-07 09:43] LABS: DIRECT LDL 156 mg/dL (<100)
[2018-11-08 14:58] LABS: TESTOSTERONE FREE (DIRECT) 8.5 pg/mL (7.2-24.0)
[2018-11-09 03:19] LABS: T-TRANSGLUTAMINASE (TTG) IGA <2 U/mL (0-3)
[2018-11-09 07:24] LABS: ENDOMYSIAL ANTIBODY IGA Negative (Negative)
== END ==
LOC: OD 08:03
PROVIDERS: ATTEND Family Medicine Geriatric Medicine
DX: E78.5 Hyperlipidemia, unspecified (principal); R94.5 Abnormal results of liver function studies; K21.0 Gastro-esophageal reflux disease with esophagitis; R14.0 Abdominal distension (gaseous); R10.9 Unspecified abdominal pain; E73.9 Lactose intolerance, unspecified; D64.9 Anemia, unspecified; M05.79 Rheumatoid arthritis with rheumatoid factor of multiple sites without organ or systems involvement; E29.1 Testicular hypofunction; Z29.9 Encounter for prophylactic measures, unspecified; Z79.899 Other long term (current) drug therapy; I10 Essential (primary) hypertension; E55.9 Vitamin D deficiency, unspecified
CPT/HCPCS: 36415; 80053; 80061; 82652; 83516; 84402; 84403; 84443; 85025; 86256

== ENCOUNTER → 2018-12-14 | Outpatient (CLI) | payer OTHER ==
--- NOTE | 2018-12-14 12:57 | RADIOLOGY REPORT (SQ) ---
EXAM DESCRIPTION: CT ABD/PELVIS WITH IV ONLY COMPLETED DATE/TIME: 12/14/2018 10:34 am REASON FOR STUDY: R10.84 GENERALIZED ABDOMINAL PAIN R10.84 GENERALIZED ABDOMINAL PAIN COMPARISON: None. TECHNIQUE: CT scan of the abdomen and pelvis performed using helical scanning technique with dynamic intravenous contrast injection. No oral contrast. Images reviewed with lung, soft tissue, and bone windows. Reconstructed coronal and sagittal MPR images reviewed. Delayed images for evaluation of the urinary system also acquired. All images stored on PACS. All CT scanners at this facility use dose modulation, iterative reconstruction, and/or weight based d osing when appropriate to reduce radiation dose to as low as reasonably achievable (ALARA). [facility]: Dose Right [facility]: CareDose [facility]: Dose Right [facility]: Teradose 4D [facility]: WellRight CONTRAST TYPE AND DOSE: contrast/concentration: Isovue 350.00 mg/ml; Total Contrast Delivered: 100.0 ml; Total Saline Delivered: 72.0 ml RENAL FUNCTION: Creatinine 1.0 RADIATION DOSE: CT Rad equipment meets quality standard of care and radiation dose reduction techniq ues were employed. CTDIvol: 13.0 - 14.7 mGy. DLP: 1412 mGy-cm.. LIMITATIONS: None. FINDINGS: LOWER CHEST: Large hiatal hernia. LIVER: Fatty liver with sparing near the gallbladder fossa. Cyst left lobe. SPLEEN: Normal size. No focal lesions. PANCREAS: No masses. No significant calcifications. No adjacent inflammation or peripancreatic fluid collections. Pancreatic duct not dilated. GALLBLADDER: No identified stones by CT criteria. No inflammatory changes to suggest cholecystitis. ADRENAL GLANDS: No significant masses or asymmetry. RIGHT KIDNEY AND URETER: No solid masses. No significant calcifications. No hydronephrosis or hyd roureter. LEFT KIDNEY AND URETER: No solid masses. No significant calcifications. No hydronephrosis or hydr oureter. AORTA AND VESSELS: No aneurysm. No dissection. Renal arteries, SMA, celiac without stenosis. RETROPERITONEUM: No retroperitoneal adenopathy, hemorrhage or masses. BOWEL AND PERITONEAL CAVITY: Sigmoid diverticulosis. No masses or inflammatory changes. No free flui d or peritoneal masses. APPENDIX: Normal. PELVIS: No mass. No free fluid. Normal bladder. ABDOMINAL WALL: Fat containing umbilical and left inguinal hernias. BONES: Nothing acute. OTHER: No other significant finding. IMPRESSION: Diverticulosis. No acute findings. TECHNICAL DOCUMENTATION: JOB ID: [id number] Quality ID # [id number]: Final reports with documentation of one or more dose reduction techniques (e.g., Au tomated exposure control, adjustment of the mA and/or kV according to patient size, use of iterative reconstruction technique) 2010 [employer]- All Rights Reserved Reading location - IP/workstation name: [email or web address]
== END ==
LOC: RAD 10:16
PROVIDERS: ATTEND Family Medicine Geriatric Medicine
DX: R10.84 Generalized abdominal pain (principal)
CPT/HCPCS: 74177; 82565

== ENCOUNTER → 2018-12-26 | Outpatient (CLI) | payer OTHER ==
[2018-12-26 10:48] LABS: ABSOLUTE BASOPHILS # (AUTO) 0.1 10^3/uL (0.0-0.2); ABSOLUTE EOSINOPHILS # (AUTO) 0.2 10^3/uL (0.0-0.6); ABSOLUTE LYMPHOCYTES (AUTO) 2.1 10^3/uL (0.5-4.7); ABSOLUTE MONOCYTES (AUTO) 0.6 10^3/uL (0.1-1.4); ABSOLUTE NEUT (AUTO) 2.9 10^3/uL (1.7-8.2); EOSINOPHILS % (AUTO) 3.8 % (0-6); HEMATOCRIT 41.1 % (37.9-51.0); HEMOGLOBIN 14.2 g/dL (13.5-17.0); LYMPHOCYTES % (AUTO) 35.5 % (13-45); MEAN CORPUSCULAR HEMOGLOBIN 33.3 pg (27.0-33.4); MEAN CORPUSCULAR HGB CONC 34.6 g/dL (32.0-36.0); MEAN CORPUSCULAR VOLUME 96 fl (80-97); MONOCYTES % (AUTO) 10.1 % (3-13); PLATELET COUNT 257 10^3/uL (150-450); RED BLOOD COUNT 4.27 10^6/uL (4.35-5.55); RED CELL DISTRIBUTION WIDTH 12.6 % (11.5-14.0); SEGMENTED NEUTROPHILS % (AUTO) 49.6 % (42-78); TOTAL CELLS COUNTED % (AUTO) 100 %; WHITE BLOOD COUNT 5.9 10^3/uL (4.0-10.5)
[2018-12-26 11:18] LABS: ALANINE AMINOTRANSFERASE 139 U/L (21-72); CHOLESTEROL 157.79 mg/dL (0-200); TRIGLYCERIDES 189 mg/dL (<150)
[2018-12-26 11:29] LABS: DIRECT LDL 102 mg/dL (<100)
[2018-12-26 11:32] LABS: VLDL CHOLESTEROL 37.8 mg/dL (10-31)
[2018-12-27 09:39] LABS: HEPATITIS A AB IGM Negative (Negative); HEPATITIS B CORE AB IGM Negative (Negative); HEPATITS B SURFACE ANTIGEN Negative (Negative)
[2018-12-27 13:52] LABS: HEPATITIS C VIRUS ANTIBODY <0.1 s/co ratio (0.0-0.9)
== END ==
LOC: OD 09:39
PROVIDERS: ATTEND Family Medicine Geriatric Medicine
DX: R10.84 Generalized abdominal pain (principal); R94.5 Abnormal results of liver function studies; E78.5 Hyperlipidemia, unspecified; Z79.899 Other long term (current) drug therapy
CPT/HCPCS: 36415; 80061; 80074; 84450; 84460; 85025

== ENCOUNTER → 2019-01-12 | Outpatient (CLI) | payer OTHER ==
[2019-01-12 09:58] LABS: ABSOLUTE BASOPHILS # (AUTO) 0.1 10^3/uL (0.0-0.2); ABSOLUTE EOSINOPHILS # (AUTO) 0.1 10^3/uL (0.0-0.6); ABSOLUTE MONOCYTES (AUTO) 0.6 10^3/uL (0.1-1.4); ABSOLUTE NEUT (AUTO) 3.5 10^3/uL (1.7-8.2); EOSINOPHILS % (AUTO) 1.8 % (0-6); HEMATOCRIT 39.8 % (37.9-51.0); HEMOGLOBIN 13.7 g/dL (13.5-17.0); LYMPHOCYTES % (AUTO) 41.1 % (13-45); MEAN CORPUSCULAR HGB CONC 34.5 g/dL (32.0-36.0); MEAN CORPUSCULAR VOLUME 96 fl (80-97); MONOCYTES % (AUTO) 8.4 % (3-13); PLATELET COUNT 236 10^3/uL (150-450); RED BLOOD COUNT 4.16 10^6/uL (4.35-5.55); RED CELL DISTRIBUTION WIDTH 12.7 % (11.5-14.0); SEGMENTED NEUTROPHILS % (AUTO) 47.7 % (42-78); TOTAL CELLS COUNTED % (AUTO) 100 %; WHITE BLOOD COUNT 7.3 10^3/uL (4.0-10.5)
[2019-01-12 10:10] LABS: ALANINE AMINOTRANSFERASE 101 U/L (21-72); CALCIUM 9.8 mg/dL (8.4-10.2); CHOLESTEROL 236.88 mg/dL (0-200); TRIGLYCERIDES 301 mg/dL (<150)
[2019-01-12 10:23] LABS: DIRECT LDL 142 mg/dL (<100)
[2019-01-12 10:29] LABS: VLDL CHOLESTEROL 60.2 mg/dL (10-31)
== END ==
LOC: LAB 09:25
PROVIDERS: ATTEND Family Medicine Geriatric Medicine
DX: E78.5 Hyperlipidemia, unspecified (principal); R74.8 Abnormal levels of other serum enzymes; R78.89 Finding of other specified substances, not normally found in blood; Z79.899 Other long term (current) drug therapy
CPT/HCPCS: 36415; 80061; 82310; 84450; 84460; 85025

== ENCOUNTER → 2019-02-12 | Outpatient (CLI) | payer OTHER ==
--- NOTE | 2019-02-12 12:52 | RADIOLOGY REPORT (SQ) ---
EXAM DESCRIPTION: CERV SP 4 OR 5 VIEWS COMPLETED DATE/TIME: 02/12/2019 10:46 am REASON FOR STUDY: CERVICALGIA M54.2 CERVICALGIA COMPARISON: None. NUMBER OF VIEWS: Five views. TECHNIQUE: AP, lateral, obliques and odontoid radiographic images acquired of the cervical spine. LIMITATIONS: None. FINDINGS: MINERALIZATION: Normal. ALIGNMENT: Anatomic. VERTEBRAE: Vertebral bodies of normal height. DISCS: Small posterior osteophytes. Disc height maintained. FORAMINA: Mild foraminal narrowing due to small osteophytes. LATERAL AND POSTERIOR ELEMENTS: Facets, lateral masses and spinous processes without significant find ings. HARDWARE: None in the spine. SOFT TISSUES: No masses or calcifications. Lung apices clear. OTHER: No other significant finding. IMPRESSION: MILD DEGENERATIVE DISC DISEASE. NO ACUTE FINDINGS. TECHNICAL DOCUMENTATION: JOB ID: [id number] [email or web address]- All Rights Reserved Reading location - IP/workstation name: [email or web address]
== END ==
LOC: RAD 10:12
PROVIDERS: ATTEND Family Medicine Geriatric Medicine
DX: M50.30 Other cervical disc degeneration, unspecified cervical region (principal)
CPT/HCPCS: 72050

== ENCOUNTER → 2019-06-12 | Outpatient (CLI) | payer OTHER ==
[2019-06-12 09:51] LABS: ABSOLUTE BASOPHILS # (AUTO) 0.1 10^3/uL (0.0-0.2); ABSOLUTE EOSINOPHILS # (AUTO) 0.2 10^3/uL (0.0-0.6); ABSOLUTE LYMPHOCYTES (AUTO) 2.5 10^3/uL (0.5-4.7); ABSOLUTE MONOCYTES (AUTO) 0.6 10^3/uL (0.1-1.4); ABSOLUTE NEUT (AUTO) 3.9 10^3/uL (1.7-8.2); BASOPHILS % (AUTO) 0.8 % (0-2); EOSINOPHILS % (AUTO) 2.7 % (0-6); HEMOGLOBIN 14.7 g/dL (13.5-17.0); LYMPHOCYTES % (AUTO) 34.6 % (13-45); MEAN CORPUSCULAR HEMOGLOBIN 32.2 pg (27.0-33.4); MEAN CORPUSCULAR HGB CONC 34.3 g/dL (32.0-36.0); MEAN CORPUSCULAR VOLUME 94 fl (80-97); MONOCYTES % (AUTO) 7.8 % (3-13); PLATELET COUNT 209 10^3/uL (150-450); RED BLOOD COUNT 4.57 10^6/uL (4.35-5.55); RED CELL DISTRIBUTION WIDTH 13.2 % (11.5-14.0); SEGMENTED NEUTROPHILS % (AUTO) 54.1 % (42-78); TOTAL CELLS COUNTED % (AUTO) 100 %; WHITE BLOOD COUNT 7.2 10^3/uL (4.0-10.5)
[2019-06-12 10:19] LABS: ASPARTATE AMINO TRANSFERASE 43 U/L (17-59); CHOLESTEROL 139.76 mg/dL (0-200); TRIGLYCERIDES 256 mg/dL (<150)
[2019-06-12 10:29] LABS: DIRECT LDL 90 mg/dL (<100)
[2019-06-12 10:32] LABS: VLDL CHOLESTEROL 51.2 mg/dL (10-31)
== END ==
LOC: LAB 09:30
PROVIDERS: ATTEND Family Medicine Geriatric Medicine
DX: E78.5 Hyperlipidemia, unspecified (principal); R79.89 Other specified abnormal findings of blood chemistry; Z79.899 Other long term (current) drug therapy
CPT/HCPCS: 36415; 80061; 84450; 84460; 85025

== ENCOUNTER → 2019-08-07 | Outpatient (CLI) | payer OTHER ==
[2019-08-07 10:44] LABS: CHOLESTEROL 164.23 mg/dL (0-200); TRIGLYCERIDES 356 mg/dL (<150)
[2019-08-07 10:55] LABS: DIRECT LDL 80 mg/dL (<100)
[2019-08-07 10:58] LABS: VLDL CHOLESTEROL 71.2 mg/dL (10-31)
== END ==
LOC: LAB 09:54
PROVIDERS: ATTEND Family Medicine Geriatric Medicine
DX: E78.5 Hyperlipidemia, unspecified (principal); E29.1 Testicular hypofunction; Z79.899 Other long term (current) drug therapy; Z68.30 Body mass index [BMI] 30.0-30.9, adult
CPT/HCPCS: 36415; 80061; 84460

== ENCOUNTER → 2019-10-08 | Outpatient (CLI) | payer OTHER ==
[2019-10-08 10:06] LABS: ABSOLUTE BASOPHILS # (AUTO) 0.1 10^3/uL (0.0-0.2); ABSOLUTE EOSINOPHILS # (AUTO) 0.3 10^3/uL (0.0-0.6); ABSOLUTE LYMPHOCYTES (AUTO) 2.3 10^3/uL (0.5-4.7); ABSOLUTE MONOCYTES (AUTO) 0.6 10^3/uL (0.1-1.4); ABSOLUTE NEUT (AUTO) 3.7 10^3/uL (1.7-8.2); BASOPHILS % (AUTO) 0.8 % (0-2); EOSINOPHILS % (AUTO) 3.9 % (0-6); HEMATOCRIT 43.6 % (37.9-51.0); LYMPHOCYTES % (AUTO) 33.6 % (13-45); MEAN CORPUSCULAR HEMOGLOBIN 33.4 pg (27.0-33.4); MEAN CORPUSCULAR HGB CONC 34.5 g/dL (32.0-36.0); MEAN CORPUSCULAR VOLUME 97 fl (80-97); MONOCYTES % (AUTO) 8.2 % (3-13); PLATELET COUNT 225 10^3/uL (150-450); RED CELL DISTRIBUTION WIDTH 13.7 % (11.5-14.0); SEGMENTED NEUTROPHILS % (AUTO) 53.5 % (42-78); TOTAL CELLS COUNTED % (AUTO) 100 %; WHITE BLOOD COUNT 6.9 10^3/uL (4.0-10.5)
[2019-10-08 10:26] LABS: CHOLESTEROL 194.33 mg/dL (0-200); TRIGLYCERIDES 507 mg/dL (<150)
[2019-10-08 10:38] LABS: DIRECT LDL 85 mg/dL (<100)
== END ==
LOC: LAB 09:40
PROVIDERS: ATTEND Family Medicine Geriatric Medicine
DX: E78.5 Hyperlipidemia, unspecified (principal); I10 Essential (primary) hypertension; Z79.899 Other long term (current) drug therapy
CPT/HCPCS: 36415; 80061; 84460; 85025

== ENCOUNTER 2019-11-02 07:30 | Day surgery (SDC) | payer OTHER ==
[2019-10-31 09:27] LABS: HEMATOCRIT 40.1 % (37.9-51.0); HEMOGLOBIN 13.9 g/dL (13.5-17.0); MEAN CORPUSCULAR HEMOGLOBIN 33.8 pg (27.0-33.4); MEAN CORPUSCULAR HGB CONC 34.6 g/dL (32.0-36.0); MEAN CORPUSCULAR VOLUME 98 fl (80-97); PLATELET COUNT 234 10^3/uL (150-450); WHITE BLOOD COUNT 6.2 10^3/uL (4.0-10.5)
[2019-10-31 09:55] LABS: ANION GAP 6 (5-19); BLOOD UREA NITROGEN 7 mg/dL (7-20); CALCIUM 9.6 mg/dL (8.4-10.2); CARBON DIOXIDE 32 mmol/L (22-30); CHLORIDE 107 mmol/L (98-107); GLUCOSE 116 mg/dL (75-110)
--- NOTE | 2019-10-31 12:31 | RADIOLOGY REPORT (SQ) ---
EXAM DESCRIPTION: CHEST PA/LATERAL COMPLETED DATE/TIME: 10/31/2019 9:41 am REASON FOR STUDY: PRE OP COMPARISON: 09/04/2018 EXAM PARAMETERS: NUMBER OF VIEWS: two views TECHNIQUE: Digital Frontal and Lateral radiographic views of the chest acquired. RADIATION DOSE: NA LIMITATIONS: none FINDINGS: LUNGS AND PLEURA: No opacities, masses or pneumothorax. No pleural effusion. MEDIASTINUM AND HILAR STRUCTURES: Small hiatal hernia. HEART AND VASCULAR STRUCTURES: Heart normal size. No evidence for failure. BONES: No acute findings. HARDWARE: None in the chest. OTHER: No other significant finding. IMPRESSION: Small hiatal hernia. No acute cardiopulmonary findings. TECHNICAL DOCUMENTATION: JOB ID: [id number] [employer]- All Rights Reserved Reading location - IP/workstation name: [email or web address]
--- NOTE | 2019-10-31 18:33 | EKG REPORT ---
SEVERITY:- NORMAL ECG - SINUS RHYTHM : Confirmed by: Belgica Amaya MD 31-Oct-2019 18:33:22
[~2019-11-02 07:30] MED LIST changes: +ACETAMINOPHEN 1,000 MG/100 ML RTUPB IV PRN; -BENZOCAINE 20% AEROSOL SPRAY 60 GM ONE; +CEFAZOLIN 1 GM/D5W RTU 1 GM/50 ML RTUPB IV ONE; +CEFAZOLIN SODIUM 2 GM in DEXTROSE 5%-WATER 100 ML IV PRN; +DEXAMETHASONE SOD PHOSPHATE INJ 4 MG/1 ML VIAL ONE; +FENTANYL CITRATE INJ/PF 100 MCG/2 ML AMPUL ONE; +IBUPROFEN 800 MG in NORMAL SALINE 250 ML IV PRN; +LACTATED RINGERS 1000 ML IV PRN; +LIDOCAINE 0.5% INJ-PF (5 MG/ML) 50 ML SDV SUBCUT PRN; -LIDOCAINE 2% JELLY 5 ML TUBE ONE; +MIDAZOLAM 2 MG/2 ML INJ ONE; +ONDANSETRON HCL INJ/PF 4 MG/2 ML SDV ONE; +PROPOFOL INJ 200 MG/20 ML VIAL IV ONE; +SUGAMMADEX SODIUM 200 MG/2 ML SDV IV ONE
[2019-11-02] MEDS ORDERED: FAMOTIDINE INJ/PF 20 MG/2 ML SDV IV ONE (07:48)
[2019-11-02] MEDS ORDERED: ALBUTEROL SULFATE 0.083% NEB 2.5 MG/3 ML AMPUL NEB ONE (08:08)
[2019-11-02] MEDS ORDERED: ACETAMINOPHEN 1,000 MG/100 ML RTUPB IV ONE (08:15)
[2019-11-02] MEDS: BUPIVACAINE HCL 0.25 % INJ/PF (2.5 MG/1 ML) 30 ML VIAL ONE ×2 (08:26→09:04)
[2019-11-02] MEDS ORDERED: CEFAZOLIN INJ 1 GM VIAL ONE (09:06)
[2019-11-02] MEDS ORDERED: FENTANYL CITRATE INJ/PF 100 MCG/2 ML AMPUL IV PRN ×2 (09:36)
[2019-11-02] MEDS ORDERED: PROMETHAZINE HCL INJ 25 MG/1 ML VIAL IV PRN ×2 (09:36)
[2019-11-02] MEDS ORDERED: MORPHINE SULFATE 10 MG/ML INJ IV PRN (09:36)
[2019-11-02] MEDS ORDERED: DIPHENHYDRAMINE HCL 50 MG/ML VIAL IV PRN (09:36)
[2019-11-02] MEDS ORDERED: ONDANSETRON HCL INJ/PF 4 MG/2 ML SDV IV PRN (09:36)
[2019-11-02] MEDS ORDERED: MEPERIDINE HCL/PF INJ 25 MG/1 ML DISP.SYRIN IV PRN (09:36)
--- NOTE | 2019-11-02 11:10 | Operative Report ---
Nonrecallable Operative Report DATE OF SURGERY: 11/02/19 PREOPERATIVE DIAGNOSIS: Ventral hernia POSTOPERATIVE DIAGNOSIS: Midline ventral hernia, Lao cheese defect. OPERATION: Robot-assisted laparoscopic ventral hernia repair with mesh. SURGEON: SANDRA CHRISTIAN ANESTHESIA: GA TISSUE REMOVED OR ALTERED: None COMPLICATIONS: None apparent ESTIMATED BLOOD LOSS: Minimal PROCEDURE: Drains/implants: 20 x [address] hernia mesh. Procedure in detail: After informed consent was obtained, the patient was broug ht to the operating room and laid in the supine position. The area of the abdomen was prepped and draped in a normal sterile fashion. A left upper quadrant incision was created with a 15 blade scalpel. The abdomen was then accessed using a 5 mm camera, 5 mm trocar, and the Optiview technique. Gas insufflation was attached, and pneumoperitoneum was achieved. A left-sided 12 mm trocar and a left lower quadrant 8 mm trocar were then placed under direct laparoscopic visualization. The 5 mm trocar was removed, and replaced with an 8 mm robotic trocar. The robot was then brought over the patience ent, and docked appropriately. I then assumed my position at the surgeon's console. The fatty tissue at the midline was dissected free. The periumbilical hernia defect was identified, however there were 2 more midline hernia defects identified. One in the epigastric area, and 1 in between the epigastric defect and the umbilical defect. This confirmed a Lao cheese ventral hernia. All the fatty tissue from the anterior abdominal wall was cleared away. The distance between the defects measured approximately 10 cm. Secondary to this a 15 x [address] hernia mesh was chosen to cover the defect adequately. The midline fascia was then reapproximated using number 1 V lock suture in simple running fashion. 2 separate sutures were overlapped, to close the defects. Next, the mesh was inserted into the abdomen and apposed to the anterior abdominal wall. The mesh was sewn to the anterior abdominal wall using 2-0 V lock nonabsorbable suture in simple running fashion. Once this was completed, the robot was undocked, and I scrubbed back into the case. The 8 mm trocar sites were closed using the Harman-Christopher device and 0 Vicryl suture in simple interrupted fashion. The 12 mm trocar site was closed using 0 Vicryl suture in [id number] fashion. This was all done with the aid of the Harman-Christopher device. the overlying skin was closed using 4-0 Vicryl Rapide suture in subcuticular fashion. Dressings were placed, and the procedure was concluded. All sponge, instrument, and needle counts were correct x2. Condition: Stable.
--- NOTE | 2019-11-02 11:16 | Discharge Summary ---
Discharge Summary (SDC) - Discharge Final Diagnosis: French cheese ventral hernia Date of Surgery: 11/02/19 Discharge Date: 11/02/19 Condition: Stable Treatment or Instructions: Discharge home. Diet as tolerated. Activity: No lifting or than 10 pounds x 6 weeks. Follow-up with me in 7 to 10 days. Panora 10/325 mg p.o. every 6 hours PRN for pain. Ibuprofen 800 mg p.o. 3 times daily with meals. Okay to shower in 48 hours. Prescriptions: Ibuprofen [Ibu] 800 mg PO TID #42 tablet Hydrocodone/Acetaminophen [Panora 10-325 mg Tablet] 1 tab PO Q6HP PRN #28 tablet PRN Reason: For Pain Referrals: CARLO STAPLES MD [Primary Care Provider] - Discharge Diet: As Tolerated Respiratory Treatments at Home: Deep Breathing/Coughing, Incentive Spirometer Discharge Activity: No Lifting Over 10 Pounds, No Lifting/Push/Pulling, No tub bath Home Care Assistance: None Needed Report the Following to Your Physician Immediately: Shortness of Breath, Nausea, Vomiting, Increase in Pain, Fever over 101 Degrees, Unusual Bleeding, Redness
[2019-11-02] MEDS ORDERED: FENTANYL CITRATE INJ/PF 100 MCG/2 ML AMPUL ONE (11:20)
[2019-11-02] MEDS: FENTANYL CITRATE INJ/PF 100 MCG/2 ML AMPUL IV PRN ×2 (11:23→11:40)
[2019-11-02] MEDS ORDERED: LORAZEPAM INJ 2 MG/1 ML VIAL ONE (11:32)
[2019-11-02] MEDS ORDERED: HYDROCODONE/ACETAMINOPHEN 10-325 MG TABLET ONE (12:39)
[2019-11-02] MEDS ORDERED: GLYCOPYRROLATE 1 MG/5 ML VIAL ONE (12:40)
[2019-11-02] MEDS ORDERED: SUCCINYLCHOLINE CHLORIDE INJ 200 MG/10 ML VIAL ONE (12:40)
[2019-11-02] MEDS ORDERED: ROCURONIUM BROMIDE INJ 50 MG/5 ML VIAL IV ONE (12:40)
[2019-11-02 15:56] VITALS: BP 127/84
== END 2019-11-02 15:00 | disposition home or self-care (01) ==
LOC: OROUT 07:30
PROVIDERS: ATTEND Surgery
DX: K42.9 Umbilical hernia without obstruction or gangrene (principal); K43.9 Ventral hernia without obstruction or gangrene; J44.9 Chronic obstructive pulmonary disease, unspecified; E66.9 Obesity, unspecified; Z68.29 Body mass index [BMI] 29.0-29.9, adult; I10 Essential (primary) hypertension; E78.00 Pure hypercholesterolemia, unspecified; E55.9 Vitamin D deficiency, unspecified; M06.9 Rheumatoid arthritis, unspecified; Z87.891 Personal history of nicotine dependence; Z79.51 Long term (current) use of inhaled steroids
CPT/HCPCS: 49652; S2900; 36415; 71046; 790; 80048; 85027; 86850; 86900; 86901; 93005; 93010; C1781; J0131; J0330; J0690; J1100; J1741; J2060; J2250; J2405; J2704; J3010; J3490; J7050; J7060; S0028

== ENCOUNTER → 2019-12-05 | Outpatient (CLI) | payer OTHER ==
[2019-12-05 09:03] LABS: CHOLESTEROL 153.03 mg/dL (0-200); TRIGLYCERIDES 331 mg/dL (<150)
[2019-12-05 09:14] LABS: DIRECT LDL 72 mg/dL (<100)
[2019-12-05 09:17] LABS: VLDL CHOLESTEROL 66.2 mg/dL (10-31)
== END ==
LOC: LAB 08:21
PROVIDERS: ATTEND Family Medicine Geriatric Medicine
DX: E78.5 Hyperlipidemia, unspecified (principal); Z79.899 Other long term (current) drug therapy
CPT/HCPCS: 36415; 80061; 84460

== ENCOUNTER → 2020-03-08 | Outpatient (CLI) | payer OTHER ==
[2020-03-08 10:26] LABS: ANION GAP 5 (5-19); ASPARTATE AMINO TRANSFERASE 29 U/L (17-59); BLOOD UREA NITROGEN 9 mg/dL (7-20); CALCIUM 9.7 mg/dL (8.4-10.2); CARBON DIOXIDE 29 mmol/L (22-30); CHLORIDE 110 mmol/L (98-107); CHOLESTEROL 168.22 mg/dL (0-200); GLUCOSE 94 mg/dL (75-110); POTASSIUM 4.4 mmol/L (3.6-5.0); TRIGLYCERIDES 371 mg/dL (<150)
[2020-03-08 10:38] LABS: DIRECT LDL 85 mg/dL (<100)
[2020-03-08 10:40] LABS: VLDL CHOLESTEROL 74.2 mg/dL (10-31)
== END ==
LOC: OD 09:08
PROVIDERS: ATTEND Family Medicine Geriatric Medicine
DX: E78.2 Mixed hyperlipidemia (principal); I10 Essential (primary) hypertension; Z79.899 Other long term (current) drug therapy
CPT/HCPCS: 36415; 80048; 80061; 84450; 84460

== ENCOUNTER → 2020-06-13 | Outpatient (CLI) | payer OTHER ==
[2020-06-13 08:27] LABS: ABSOLUTE BASOPHILS # (AUTO) 0.1 10^3/uL (0.0-0.2); ABSOLUTE EOSINOPHILS # (AUTO) 0.2 10^3/uL (0.0-0.6); ABSOLUTE LYMPHOCYTES (AUTO) 1.8 10^3/uL (0.5-4.7); ABSOLUTE MONOCYTES (AUTO) 0.6 10^3/uL (0.1-1.4); ABSOLUTE NEUT (AUTO) 3.3 10^3/uL (1.7-8.2); BASOPHILS % (AUTO) 1.1 % (0-2); EOSINOPHILS % (AUTO) 4.1 % (0-6); HEMATOCRIT 42.3 % (37.9-51.0); HEMOGLOBIN 14.6 g/dL (13.5-17.0); MEAN CORPUSCULAR HEMOGLOBIN 33.7 pg (27.0-33.4); MEAN CORPUSCULAR HGB CONC 34.5 g/dL (32.0-36.0); MEAN CORPUSCULAR VOLUME 98 fl (80-97); MONOCYTES % (AUTO) 9.7 % (3-13); PLATELET COUNT 222 10^3/uL (150-450); RED BLOOD COUNT 4.33 10^6/uL (4.35-5.55); SEGMENTED NEUTROPHILS % (AUTO) 55.1 % (42-78); TOTAL CELLS COUNTED % (AUTO) 100 %
[2020-06-13 08:51] LABS: ANION GAP 9 (5-19); BLOOD UREA NITROGEN 11 mg/dL (7-20); CALCIUM 9.6 mg/dL (8.4-10.2); CARBON DIOXIDE 26 mmol/L (22-30); CHLORIDE 110 mmol/L (98-107); CHOLESTEROL 198.11 mg/dL (0-200); GLUCOSE 114 mg/dL (75-110); POTASSIUM 4.3 mmol/L (3.6-5.0); TRIGLYCERIDES 439 mg/dL (<150)
[2020-06-13 09:01] LABS: DIRECT LDL 103 mg/dL (<100)
== END ==
LOC: OD 07:47
PROVIDERS: ATTEND Family Medicine Geriatric Medicine
DX: I10 Essential (primary) hypertension (principal); E29.1 Testicular hypofunction; E78.5 Hyperlipidemia, unspecified; K44.9 Diaphragmatic hernia without obstruction or gangrene; Z79.899 Other long term (current) drug therapy
CPT/HCPCS: 36415; 80048; 80061; 84460; 85025

== ENCOUNTER → 2020-07-26 | Outpatient (CLI) | payer OTHER | LOC: OD 08:08 | PROVIDERS: ATTEND Family Medicine Geriatric Medicine | DX: Z53.29 Procedure and treatment not carried out because of patient's decision for other reasons (principal); E78.9 Disorder of lipoprotein metabolism, unspecified; R74.8 Abnormal levels of other serum enzymes; R71.8 Other abnormality of red blood cells; R73.9 Hyperglycemia, unspecified; Z79.899 Other long term (current) drug therapy ==

== ENCOUNTER → 2020-09-25 | Outpatient (CLI) | payer OTHER ==
[2020-09-25 12:52] VITALS: BP 130/79
--- NOTE | 2020-09-25 12:52 | ER RDC ASSESSMENT REPORT ---
Intake - In the Last 14 days Have you traveled outside [place]?: No Have you been in close contact with someone CONFIRMED: Yes Worked in Healthcare?: No - Symptoms Subjective Fever([place] feverish): No Chills: No Muscule Aches: Yes Runny Nose: Yes Sore Throat: Yes Cough (New or worsening chronic cough): Yes Shortness of breath: Yes Nausea or Vomiting: No Headache: Yes Abdominal Pain: No Diarrhea(3 or more loose stools in last 24 hours): No - Do you have any of the following Chronic lung disease: Asthma or emphysema or COPD: Yes Chronic Lung Disease Comment: History of COPD Cystic Fibrosis: No Diabetes: No High Blood Pressure: Yes Cardiovascular Disease: Yes Chronic Kidney Disease: No Chronic Liver Disease: No Chronic blood disorder like Sickle Cell Disease: No Weak immune system due to disease or medication: Yes Immune System Comment: History of rheumatoid arthritis Neurologic condition that limits movement: No Developmental delay - Moderate to Severe: No Recent (within past 2 weeks) or current : No Morbid Obesity (>100 pounds over ideal weight): No Obesity Comment: Height 5 feet 8 inches weight 200 pounds - Objective Temperature: 98.7 F Pulse Rate: 89 Respiratory Rate: 16 Blood Pressure: 130/79 O2 Sat by Pulse Oximetry: 95 Objective: Given above, testing performed: If Testing Performed: Test Specimen Type Sent to General - General Information source: Patient Notes: Patient here at [facility] for Covid testing patient reports had exposure to Covid by bosximena who has tested positive patient reports starting to have symptoms several days ago which included muscle aches runny nose sore throat cough shortness of breath and headache. Patient has a history of COPD and has also a history of smoking a pack a day. Patient's PCP is Dr. Roth and has contacted him. - Related Data Allergies/Adverse Reactions: No Known Allergies Allergy (Verified 09/04/18 08:09) Past Medical History - General Information source: Patient - Social History Smoking Status: Current Every Day Smoker - A pack a day Smoking Education Provided: Yes - Quit smoking Family History: CAD - Maternal, Hypertension - Past Medical History Cardiac Medical History: Reports: Hx Hypercholesterolemia, Hx Hypertension - on meds Denies: Hx Coronary Artery Disease, Hx Heart Attack Pulmonary Medical History: Reports: Hx COPD - ? inhaler, Hx Pneumonia - YRS AGO Denies: Hx Asthma, Hx Bronchitis Neurological Medical History: Denies: Hx Cerebrovascular Accident, Hx Seizures Renal/ Medical History: Denies: Hx Peritoneal Dialysis GI Medical History: Reports: Hx Gastroesophageal Reflux Disease, Hx Hiatal Hernia Musculoskeletal Medical History: Reports Hx Arthritis - RA, LOW BACK, DJD Past Surgical History: Reports: Hx Orthopedic Surgery - left shoulder AC joint resection Physical Exam - General General appearance: Appears well, Alert In distress: None Notes: PHYSICAL EXAMINATION: GENERAL: Well-appearing and in no acute distress. HEAD: Atraumatic, normocephalic. EYES: sclera anicteric, conjunctiva are normal. ENT: nares patent. Moist mucous membranes. NECK: Normal range of motion, supple without lymphadenopathy LUNGS: CTAB and equal. No wheezes rales or rhonchi. Respirations even and unlabored lung sounds clear. HEART: Regular rate and rhythm without murmurs ABDOMEN: Soft, nontender, normal bowel sounds, no guarding. EXTREMITIES: Normal range of motion, no pitting edema. No cyanosis. NEUROLOGICAL: Cranial nerves grossly intact. Normal speech. Normal gait. PSYCH: Normal mood, normal affect. SKIN: Warm, Dry, normal turgor, no rashes or lesions noted Diagnostic Results Laboratory Results: Ending strep culture. Pending Covid testing results. Patient provided instructions regarding Covid to include: As a person under investigation for Covid 19, the [place] department of Health and Human Services, division of public health advises you to adhere to the following guidance until your test results are reported to you. If your test result is positive, you will receive additional information from your provider and your local health department at that time. Remain at home until you are cleared by the health provider or public health authorities. Keep a log of visitors to your home, notify any visitors to your home of your isolation status. If you plan to move to a new address or leave the [facility], notify the local health department in your County. Call your doctor or seek care if you have an urgent medical need. Before seeking medical care, call ahead to get instructions from the provider before arriving at the medical office clinic or hospital. Notify them that you are being tested for the virus that causes Covid 19 so that arrangements can be made, as necessary, to prevent transmission to others in the healthcare setting. Next, notify the local health department in your county. If a medical emergency arises and you need to call 911, inform the first responders that you are being tested for the virus that causes Covid 19. Next, notify the local health department in your county. Patient Education/Counseling Counseling/Education: Patient presents with upper respiratory symptoms worrisome for possible Covid 19. Patient does not have emergency worring symptoms such as difficulty breathing, shortness of breath, chest pain, pressure, confusion or cyanosis. Patient appears suitable for discharge. Patient instructed to follow-up with PCP Dr. Roth. To ED for persistent or worsening symptoms. Patient's vital signs are stable and patient is nontoxic in appearance. Good return precautions have been discussed with patient, patient verbalized understanding and is agreeable with discharge plan of care at this time. RDC Discharge - Discharge Clinical Impression: Encounter for screening laboratory testing for COVID-19 virus Upper respiratory infection Qualifiers: URI type: unspecified URI Qualified Code(s): J06.9 - Acute upper respiratory infection, unspecified Condition: Stable Disposition: Home; Selfcare
[2020-09-25 15:50] LABS: A TYPE INFLUENZA AG NEGATIVE (NEGATIVE); B INFLUENZA AG NEGATIVE (NEGATIVE)
== END ==
LOC: RDC 11:27
PROVIDERS: ATTEND Nurse Practitioner Family
DX: J06.9 Acute upper respiratory infection, unspecified (principal); Z20.828 Contact with and (suspected) exposure to other viral communicable diseases; R05 Cough; J02.9 Acute pharyngitis, unspecified; R06.02 Shortness of breath; R09.89 Other specified symptoms and signs involving the circulatory and respiratory systems; M79.10 Myalgia, unspecified site; R51.9 Headache, unspecified; I10 Essential (primary) hypertension; E78.00 Pure hypercholesterolemia, unspecified; M06.9 Rheumatoid arthritis, unspecified; J44.9 Chronic obstructive pulmonary disease, unspecified; K21.9 Gastro-esophageal reflux disease without esophagitis; F17.200 Nicotine dependence, unspecified, uncomplicated; Z71.6 Tobacco abuse counseling
CPT/HCPCS: 87070; 87880; 87635; 87804; C9803; 99201; 99211

== ENCOUNTER → 2020-10-13 | Outpatient (CLI) | payer OTHER ==
[2020-10-13 09:43] LABS: ABSOLUTE BASOPHILS # (AUTO) 0.1 10^3/uL (0.0-0.2); ABSOLUTE EOSINOPHILS # (AUTO) 0.3 10^3/uL (0.0-0.6); ABSOLUTE LYMPHOCYTES (AUTO) 2.4 10^3/uL (0.5-4.7); ABSOLUTE MONOCYTES (AUTO) 0.6 10^3/uL (0.1-1.4); ABSOLUTE NEUT (AUTO) 4.4 10^3/uL (1.7-8.2); BASOPHILS % (AUTO) 1.2 % (0-2); EOSINOPHILS % (AUTO) 4.2 % (0-6); HEMATOCRIT 42.8 % (37.9-51.0); HEMOGLOBIN 14.6 g/dL (13.5-17.0); LYMPHOCYTES % (AUTO) 30.3 % (13-45); MEAN CORPUSCULAR HGB CONC 34.2 g/dL (32.0-36.0); MEAN CORPUSCULAR VOLUME 96 fl (80-97); MONOCYTES % (AUTO) 7.2 % (3-13); PLATELET COUNT 260 10^3/uL (150-450); RED BLOOD COUNT 4.44 10^6/uL (4.35-5.55); RED CELL DISTRIBUTION WIDTH 13.9 % (11.5-14.0); SEGMENTED NEUTROPHILS % (AUTO) 57.1 % (42-78); TOTAL CELLS COUNTED % (AUTO) 100 %; WHITE BLOOD COUNT 7.8 10^3/uL (4.0-10.5)
[2020-10-13 10:06] LABS: CHOLESTEROL 239.59 mg/dL (0-200); TRIGLYCERIDES 362 mg/dL (<150)
[2020-10-13 11:10] LABS: VLDL CHOLESTEROL 72.4 mg/dL (10-31)
[2020-10-13 11:27] LABS: DIRECT LDL 146 mg/dL (<100)
== END ==
LOC: OD 08:49
PROVIDERS: ATTEND Family Medicine Geriatric Medicine
DX: E78.5 Hyperlipidemia, unspecified (principal); R74.8 Abnormal levels of other serum enzymes; R71.8 Other abnormality of red blood cells; R73.9 Hyperglycemia, unspecified; Z79.899 Other long term (current) drug therapy
CPT/HCPCS: 36415; 80061; 82607; 82746; 82947; 82950; 83036; 84460; 85025